=== PATIENT | male | born 1965 | race Caucasian/White ===

== ENCOUNTER → 2018-05-21 09:58 | Outpatient (CLI) | payer SELFPAY ==
[2018-05-21 12:19] LABS: Anion Gap 10 (5-15); BUN 14 mg/dL (7-18); BUN/Creat Ratio 17.6 RATIO (10-20); Calcium,Total 8.8 mg/dL (8.5-10.1); Chloride 101 mmol/L (98-107); EST Glomerular Filtration Rate 108 mL/min (>60); Est Glom Filt Rate - Afr Amer 130 mL/min (>60); Glucose 104 mg/dL (74-106); Sodium Level 138 mmol/L (136-145)
== END ==
PROVIDERS: Family Provider Family Medicine; PCP Family Medicine; Visit Provider Family Medicine
DX: I10 Essential (primary) hypertension (principal)
CPT/HCPCS: 36415; 80048

== ENCOUNTER → 2019-09-17 | Outpatient (CLI) | payer OTHER, SELFPAY ==
[2019-09-17 12:32] LABS: Anion Gap 7 (5-15); BUN 15 mg/dL (7-18); BUN/Creat Ratio 20.4 RATIO (10-20); Calcium,Total 8.9 mg/dL (8.5-10.1); Chloride 102 mmol/L (98-107); Creatinine, Serum 0.73 mg/dL (0.70-1.30); EST Glomerular Filtration Rate 118 mL/min (>60); Est Glom Filt Rate - Afr Amer 142 mL/min (>60); Glucose 97 mg/dL (74-106); Potassium 3.8 mmol/L (3.5-5.1); Sodium Level 135 mmol/L (136-145)
[2019-09-17 12:52] LABS: Phenytoin (Dilantin) Level 8.9 mL (10.0-20.0)
== END | disposition home or self-care (01) ==
LOC: MFPLAB 10:10
PROVIDERS: PCP Family Medicine; Referring Provider Family Medicine; Visit Provider Family Medicine
DX: I10 Essential (primary) hypertension (principal); G40.909 Epilepsy, unspecified, not intractable, without status epilepticus
CPT/HCPCS: 36415; 80048; 80185

== ENCOUNTER → 2020-09-28 10:01 | Outpatient (CLI) | payer OTHER, SELFPAY ==
[2020-09-28 12:33] LABS: Phenytoin (Dilantin) Level 7.8 mL (10.0-20.0)
[2020-09-28 12:52] LABS: Anion Gap 7 (5-15); BUN 18 mg/dL (7-18); BUN/Creat Ratio 24.9 RATIO (10-20); Calcium,Total 9.1 mg/dL (8.5-10.1); Chloride 103 mmol/L (98-107); Creatinine, Serum 0.72 mg/dL (0.70-1.30); EST Glomerular Filtration Rate 119 mL/min (>60); Est Glom Filt Rate - Afr Amer 144 mL/min (>60); Glucose 97 mg/dL (74-106); PSA,Total - Annual Screen 1.86 ng/mL (0.00-4.00); Potassium 3.7 mmol/L (3.5-5.1); Sodium Level 137 mmol/L (136-145)
== END ==
PROVIDERS: PCP Family Medicine; Referring Provider Family Medicine; Visit Provider Family Medicine
DX: Z00.00 Encounter for general adult medical examination without abnormal findings (principal); G40.909 Epilepsy, unspecified, not intractable, without status epilepticus; I10 Essential (primary) hypertension; Z12.5 Encounter for screening for malignant neoplasm of prostate
CPT/HCPCS: 36415; 80048; 80185; 84153; G0103

== ENCOUNTER 2020-10-20 07:55 | Day surgery (SDC) | payer OTHER, SELFPAY ==
[2020-10-20 08:57] VITALS: BP 132/83; PULSE 59; RESP 16; TEMP 37.1; O2SAT 99; BMI 22.1
--- NOTE | 2020-10-20 09:00 | COLBX_PTH ---
PATIENT: AIDE UPTON LOC: EN U#:[id number] AGE/SX: 54/M ROOM: RE10/20/[address]: Dr. Michael Rice MD : 1965 BED: DIS: 10/20/2020 SPEC #: [id number] RECD: 10/20/20 11:20 STATUS: DIPTI JONN #: [id number] JORI: 10/20/20 09:[address]: Michael Rice DEPT: SURGICAL PATHOLOGY RECD BY: Nat Whitten ENTERED: 10/20/20 12:25 SP TYPE: COLON BX CONOR DR: Dr. Ania Wallace MD Tissues: A - Descending colon B - Sigmoid colon biopsy Procedures: Surgery Specimen Level IV HEADER OPERATION: Colonoscopy - open access (MAC) PRE-OP DIAGNOSIS: History of colon polyps, family history colon cancer TISSUE SUBMITTED: A - Descending colon polyps x2, B - Distal sigmoid polyp MICROSCOPIC DIAGNOSIS A. Descending colon polyps x2, biopsy: Tubular adenoma (one fragment). A fragment of colonic mucosa, no pathologic diagnosis. B. Distal sigmoid polyp, biopsy: A fragment of colonic mucosa, no pathologic diagnosis. JASE:walter 10/21/2020 MICROSCOPIC DESCRIPTION Slides are reviewed. GROSS DESCRIPTION A - Received in fixative is one container labeled with the patient's name and designated descending colon polyps x2. The specimen consists of two irregular fragments of light turk soft tissue that in aggregate measure 0.6 x 0.3 x 0.1 cm. The specimen is totally submitted in one cassette. B - Received in fixative is one container labeled with the patient's name and designated distal sigmoid polyp. The specimen consists of one irregular fragment of light turk soft tissue that measures 0.4 x 0.2 x 0.1 cm. The specimen is totally submitted in one cassette. / JASE:walter 10/20/20 TC:1 CPT: 21808 x2
[2020-10-20] MEDS: Lactated Ringers 1,000 ML 100 ML IV (09:02)
--- NOTE | 2020-10-20 09:06 | HP.PCM_ITS ---
Problem List (1) Personal history of colonic polyps Status: Acute (2) Family history of colon cancer in mother Status: Acute History of Present Illness Date of Admission: 10/20/20 The patient is a 54 year old M who presents via open access today. Claims that he personally had a history of colon polyps and his previous colonoscopy was 5 or 6 years ago. He also has a family history of colon cancer in his mother. He denies any bright red blood per rectum or melena. No abdominal pain. Past Medical History Allergies naproxen Allergy (Verified 10/20/20 08:42) Hives Home Medications: Ambulatory Orders Medication Instructions Recorded Aspirin [Sunflower Aspirin EC] 81 mg PO DAILY 10/15/20 Lisinopril/Hydrochlorothiazide 1 each PO DAILY 10/15/20 [Lisinopril-Hctz 10-12.5 mg Tab] Phenytoin Sodium Extended 300 mg PO DAILY 10/15/20 [Dilantin] Smoking Status: Former smoker Tobacco Use: Non-smoker Review of Systems Constitutional: Denies: Fever Cardiovascular: Denies: Chest Pain Respiratory: Denies: Shortness of Breath Gastrointestinal: Denies: Abdominal Pain, Melena Endocrine: Denies: Change in Body Habitus VTE Information - Inpt Only VTE Present on Admission: No - Physical Exam Vitals/I&O's: Vital Signs Temp Pulse Resp BP Pulse Ox 98.7 F 59 L 16 132/83 H 99 10/20/20 08:57 10/20/20 08:57 10/20/20 08:57 10/20/20 08:57 10/20/20 08:57 Oxygen Delivery Method Room Air Weight: 132 lb 11.492 oz Body Mass Index (BMI) 22.1 General: Alert, Oriented x3, Cooperative, No apparent distress HEENT: Atraumatic Oral: Moist Mucosa Lungs: Normal air movement, Wheezes Cardiovascular: Regular rate, Regular Rhythm Abdomen: Soft, Non Tender Extremities: No Calf Tenderness Psych/Mental Status: Normal Affect Microbiology Past 72 Hours 10/19/20 08:30 Interface Orders SARS-CoV-2 Antigen (Rapid) - Final Current Medications Lactated Ringer's () 1,000 mls @ 100 mls/hr IV .Q10H GABY Last Admin: 10/20/20 09:02 Dose: 100 mls/hr Documented by: Assessment/Plan All Active Problems Personal history of colonic polyps (Acute) Family history of colon cancer in mother (Acute) 54-year-old gentleman. He presents via open access today. Some scattered wheeze on pulmonary exam. Findings were just from a previous history of tobacco use some emphysematous changes. Does not appear to be in distress. He has a personal history of colon polyps and a family history of colon cancer in his mother. We will proceed with a colonoscopy with possible biopsy or polypectomy as indicated. He has had an opportunity to ask and have questions answered. Michael Rice M.D., F.A.C.S.
[2020-10-20 10:37] VITALS: BP 107/52; BP 132/83; PULSE 55; RESP 16; TEMP 36; O2SAT 100
--- NOTE | 2020-10-20 10:40 | OP.CCLET_ITS ---
10/20/2020 Ania Wallace [address] [place] [address] Re : Colonoscopy procedure for Jonathan Marie Dear Dr. Wallace This procedure was performed on Tuesday, October 20, 2020. My impressions and recommendations are as follows: Impressions : - Hemorrhoids found on perianal exam. - One 5 mm polyp in the mid descending colon, removed with a cold biopsy forceps. Resected and retrieved. - One 5 mm polyp in the mid descending colon, removed with a cold biopsy forceps. Resected and retrieved. - One 4 mm polyp in the distal sigmoid colon, removed with a cold biopsy forceps. Resected and retrieved. - Diverticulosis in the sigmoid colon and in the descending colon. - Tortuous colon. Recommendations : - Discharge patient to home. - Resume previous diet. - Continue present medications. - Repeat colonoscopy in 5 years for surveillance based on pathology results. - Telephone my office for pathology results in 1 week. My findings are described in the full procedure note, which is enclosed. If I can be of further assistance, please feel free to contact me at Doctor phone number(s): Work: . Sincerely, Michael Rice MD 10/20/2020 10:39:39 AM This report has been signed electronically.
--- NOTE | 2020-10-20 10:40 | OP.COLON_ITS ---
Patient Name: Jonathan Marie Procedure Date: 10/20/2020 9:59 AM Date of : 1965 Age: 54 Procedure: Colonoscopy Indications: High risk colon cancer surveillance: Personal history of colonic polyps, Family history of colon cancer in a first-degree relative Providers: Michael Rice MD Referring MD: Ania Wallace Medicines: See the Anesthesia note for documentation of the administered medications Patient Profile: Last Colonoscopy: 5 years ago. Complications: No immediate complications. Procedure: Pre-Anesthesia Assessment: - Prior to the procedure, a History and Physical was performed, and patient medications and allergies were reviewed. The patient's tolerance of previous anesthesia was also reviewed. The risks and benefits of the procedure and the sedation options and risks were discussed with the patient. All questions were answered, and informed consent was obtained. Prior Anticoagulants: The patient has taken no previous anticoagulant or antiplatelet agents. ASA Grade Assessment: II - A patient with mild systemic disease. After reviewing the risks and benefits, the patient was deemed in satisfactory condition to undergo the procedure. After I obtained informed consent, the scope was passed under direct vision. Throughout the procedure, the patient's blood pressure, pulse, and oxygen saturations were monitored continuously. The pediatric colonoscope was introduced through the anus and advanced to the cecum, identified by appendiceal orifice and ileocecal valve. The colonoscopy was somewhat difficult due to a tortuous colon. Successful completion of the procedure was aided by applying abdominal pressure. The patient tolerated the procedure well. The quality of the bowel preparation was adequate to identify polyps. The ileocecal valve and the appendiceal orifice were photographed. Scope In: 10:09:34 AM Scope Withdrawal Time 0 hours 15 minutes 8 seconds Scope Out: 10:32:38 AM Total Procedure Duration Time 0 hours 23 minutes 4 seconds Findings: Hemorrhoids were found on perianal exam. A 5 mm polyp was found in the mid descending colon. The polyp was sessile. The polyp was removed with a cold biopsy forceps. Resection and retrieval were complete. A 5 mm polyp was found in the mid descending colon. The polyp was sessile. The polyp was removed with a cold biopsy forceps. Resection and retrieval were complete. A 4 mm polyp was found in the distal sigmoid colon. The polyp was sessile. The polyp was removed with a cold biopsy forceps. Resection and retrieval were complete. Multiple diverticula were found in the sigmoid colon and descending colon. The left colon was moderately tortuous. Advancing the scope required applying abdominal pressure. Impression: - Hemorrhoids found on perianal exam. - One 5 mm polyp in the mid descending colon, removed with a cold biopsy forceps. Resected and retrieved. - One 5 mm polyp in the mid descending colon, removed with a cold biopsy forceps. Resected and retrieved. - One 4 mm polyp in the distal sigmoid colon, removed with a cold biopsy forceps. Resected and retrieved. - Diverticulosis in the sigmoid colon and in the descending colon. - Tortuous colon. Recommendation: - Discharge patient to home. - Resume previous diet. - Continue present medications. - Repeat colonoscopy in 5 years for surveillance based on pathology results. - Telephone my office for pathology results in 1 week. Procedure Code(s): --- Professional --- 38621, Colonoscopy, flexible; with biopsy, single or multiple Diagnosis Code(s): --- Professional --- Z86.010, Personal history of colonic polyps K64.9, Unspecified hemorrhoids D12.4, Benign neoplasm of descending colon D12.5, Benign neoplasm of sigmoid colon Z80.0, Family history of malignant neoplasm of digestive organs K57.30, Diverticulosis of large intestine without perforation or abscess without bleeding Q43.8, Other specified congenital malformations of intestine CPT copyright 2017 [employer]. All rights reserved. The codes documented in this report are preliminary and upon lab support technician review may be revised to meet current compliance requirements. Michael Rice MD 10/20/2020 10:39:39 AM This report has been signed electronically. Number of Addenda: 0 Note Initiated On: 10/20/2020 9:59 AM
[2020-10-20 10:42] VITALS: BP 129/82; BP 132/83; PULSE 56; RESP 16; O2SAT 100
[2020-10-20 10:46] VITALS: BP 131/76; BP 132/83; PULSE 50; RESP 14; O2SAT 100
[2020-10-20 10:53] VITALS: BP 132/83; BP 139/92; PULSE 51; RESP 14; TEMP 36.6; O2SAT 100
[2020-10-20 11:20] VITALS: BP 132/83
== END 2020-10-20 11:29 | disposition home or self-care (01) ==
LOC: EN 07:55 → AC 07:56
PROVIDERS: PCP Family Medicine; Referring Provider Family Medicine; Visit Provider Surgery
PROC: 0DJD8ZZ Inspection of Lower Intestinal Tract, Via Natural or Artificial Opening Endoscopic (ICD-10-PCS; CPT 45378; principal; 2020-10-20 08:55)
DX: Z12.11 Encounter for screening for malignant neoplasm of colon (principal); D12.4 Benign neoplasm of descending colon; I10 Essential (primary) hypertension; Z86.010 Personal history of colon polyps; Z80.0 Family history of malignant neoplasm of digestive organs; Z87.891 Personal history of nicotine dependence; Z79.899 Other long term (current) drug therapy; Z20.822 Contact with and (suspected) exposure to COVID-19; K57.30 Diverticulosis of large intestine without perforation or abscess without bleeding; K64.9 Unspecified hemorrhoids
CPT/HCPCS: 45380; 87426; 88305; C9803; J7120; J2405

== ENCOUNTER → 2020-10-26 10:52 | Outpatient (CLI) | payer OTHER, SELFPAY ==
[2020-10-20 08:57] VITALS: BMI 22.1
== END ==
PROVIDERS: PCP Family Medicine; Visit Provider Family Medicine
DX: Z20.822 Contact with and (suspected) exposure to COVID-19 (principal)
CPT/HCPCS: 87635; U0002

== ENCOUNTER → 2022-01-18 | Outpatient (CLI) | payer OTHER, SELFPAY ==
[2022-01-18 18:32] LABS: Anion Gap 8 (5-15); BUN 16 mg/dL (7-18); BUN/Creat Ratio 22.6 RATIO (10-20); Calcium,Total 9.1 mg/dL (8.5-10.1); Chloride 103 mmol/L (98-107); Cholesterol 215 mg/dL (200); Creatinine, Serum 0.71 mg/dL (0.70-1.30); EST Glomerular Filtration Rate 122 mL/min (>60); Est Glom Filt Rate - Afr Amer 147 mL/min (>60); Glucose 90 mg/dL (74-106); High Density Lipoprotein 87 mg/dL; PSA,Total - Annual Screen 1.97 ng/mL (0.00-4.00); Potassium 3.5 mmol/L (3.5-5.1); Sodium Level 138 mmol/L (136-145); Triglycerides 101 mg/dL; Very Low Density Lipoprotein 20 mg/dL (5-40)
[2022-01-18 18:34] LABS: Phenytoin (Dilantin) Level 9.4 mL (10.0-20.0)
== END | disposition home or self-care (01) ==
LOC: MFPLAB 16:58
PROVIDERS: PCP Family Medicine; Visit Provider Family Medicine
DX: Z00.00 Encounter for general adult medical examination without abnormal findings (principal); G40.909 Epilepsy, unspecified, not intractable, without status epilepticus; I10 Essential (primary) hypertension; Z12.5 Encounter for screening for malignant neoplasm of prostate
CPT/HCPCS: 36415; 80048; 80061; 80185; 84153; G0103

== ENCOUNTER → 2023-02-13 | Outpatient (CLI) | payer OTHER, SELFPAY ==
[2023-02-13 18:24] LABS: Anion Gap 4 (5-15); BUN 13 mg/dL (7-18); BUN/Creat Ratio 17.2 RATIO (10-20); Calcium,Total 8.6 mg/dL (8.5-10.1); Chloride 106 mmol/L (98-107); Cholesterol 195 mg/dL (200); Creatinine, Serum 0.76 mg/dL (0.70-1.30); EST Glomerular Filtration Rate 112 mL/min (>60); Est Glom Filt Rate - Afr Amer 135 mL/min (>60); Glucose 87 mg/dL (74-106); High Density Lipoprotein 71 mg/dL; Phenytoin (Dilantin) Level 8.9 mL (10.0-20.0); Potassium 3.2 mmol/L (3.5-5.1); Sodium Level 137 mmol/L (136-145); Triglycerides 123 mg/dL; Very Low Density Lipoprotein 25 mg/dL (5-40)
== END | disposition home or self-care (01) ==
LOC: MFPLAB 16:53
PROVIDERS: PCP Family Medicine; Visit Provider Family Medicine
DX: I10 Essential (primary) hypertension (principal); G40.909 Epilepsy, unspecified, not intractable, without status epilepticus
CPT/HCPCS: 36415; 80048; 80061; 80185

== ENCOUNTER → 2024-09-17 | Outpatient (CLI) | payer OTHER, SELFPAY ==
[2024-09-17 19:12] LABS: PSA,Total - Annual Screen 1.97 ng/mL (0.02-4.00)
[2024-09-17 20:37] LABS: Protein, Urine (Random) < 6 mg/dL (<=12); Protein:Creat Ratio 181 mg/g CRE (0-200)
[2024-09-17 23:58] LABS: Cholesterol 223 mg/dL (<=200); High Density Lipoprotein 81 mg/dL; Triglycerides 87 mg/dL; Very Low Density Lipoprotein 17 mg/dL (5-40)
[2024-09-18 00:23] LABS: Anion Gap 12 (5-15); BUN 15 mg/dL (4-19); BUN/Creat Ratio 20.7 RATIO (10-20); Calcium 9.5 mg/dL (7.6-11.0); Chloride 100 mmol/L (96-108); Creatinine, Serum 0.7 mg/dL (0.8-1.3); EST Glomerular Filtration Rate 105 (>60); Glucose 99 mg/dL (70-99); Potassium 3.9 mmol/L (3.3-5.1); Sodium Level 136 mmol/L (133-145)
[2024-09-18 13:08] LABS: Phenytoin (Dilantin) Level 12.5 ug/mL (10.0-20.0)
== END | disposition home or self-care (01) ==
LOC: MFPLAB 11:16
PROVIDERS: PCP Family Medicine; Referring Provider Family Medicine; Visit Provider Family Medicine
DX: G40.909 Epilepsy, unspecified, not intractable, without status epilepticus (principal)
CPT/HCPCS: 36415; 80048; 80061; 82570; 84153; 84156; G0103

== ENCOUNTER → 2025-03-17 | Outpatient (CLI) | payer OTHER, SELFPAY ==
[2025-03-17 16:15] LABS: AST(SGOT) 30 U/L (<=37); Alanine Aminotransfer ALT/SGPT 31 U/L (<=46); Albumin, Serum 4.5 g/dL (3.4-4.8); Alkaline Phosphatase 58 U/L (40-129); Anion Gap 14 (5-15); BUN 14 mg/dL (4-19); BUN/Creat Ratio 21.3 RATIO (10-20); Calcium,Total 9.5 mg/dL (7.6-11.0); Carbon Dioxide 23.4 mmol/L (21.0-32.0); Chloride 100 mmol/L (98-108); Cholesterol 217 mg/dL (<=200); Globulin 2.7 g/dL (2.2-4.2); Glucose 90 mg/dL (70-99); Low Density Lipoprotein Calc. 117 mg/dL; Potassium 4.0 mmol/L (3.3-5.1); Triglycerides 68 mg/dL; Very Low Density Lipoprotein 14 mg/dL (5-40); cholesterol:hdl ratio screen 2.51
== END | disposition home or self-care (01) ==
LOC: MFPLAB 11:50
PROVIDERS: PCP Family Medicine; Referring Provider Family Medicine; Visit Provider Family Medicine
DX: G40.909 Epilepsy, unspecified, not intractable, without status epilepticus (principal); I10 Essential (primary) hypertension
CPT/HCPCS: 36415; 80053; 80061; 80185